=== PATIENT | male | born 1980 | race Caucasian/White ===

== ENCOUNTER 2020-04-18 03:51 | Observation (INO) | payer OTHER ==
[2020-04-18 04:50] LABS: Basophils % (A) 1 %; Eosinophils # (A) 0.3 k/uL (0-0.7); Eosinophils % (A) 6 %; HCT 43.5 % (39.0-53.0); HGB 14.8 gm/dL (13.0-17.5); Lymphocytes # (A) 1.7 k/uL (1.0-4.8); Lymphocytes % (A) 34 %; MCH 31.9 pg (25.0-35.0); MCV 93.9 fL (80.0-100.0); Mean Platelet Volume 7.3; Monocytes # (A) 0.3 k/uL (0-1.0); Monocytes % (A) 7 %; Neutrophils # (A) 2.4 k/uL (1.3-7.7); Neutrophils % (A) 49 %; Platelet Count 276 k/uL (150-450); RBC 4.63 m/uL (4.30-5.90); RDW 12.5 % (11.5-15.5); WBC 4.9 k/uL (3.8-10.6)
--- NOTE | 2020-04-18 04:51 | XR ---
EXAMINATION TYPE: XR chest 2V DATE OF EXAM: 04/18/2020 COMPARISON: 08/23/2018 HISTORY: Chest pain TECHNIQUE: FINDINGS: Heart and mediastinum are normal. Lungs are clear. Diaphragm is normal. Bony thorax appears normal. There are chest leads. IMPRESSION: Normal chest. No change.
[2020-04-18 04:54] LABS: Appearance,Urine Clear (Clear); Bilirubin,Urine Negative (Negative); Blood,Urine Negative (Negative); Color,Urine Colorless; Glucose,Urine (UA) Negative (Negative); Ketones,Urine Negative (Negative); Leukocyte Esterase,Urine Negative (Negative); Nitrite,Urine Negative (Negative); PH, Urine 6.5 (5.0-8.0); Protein,Urine Negative (Negative); Specific Gravity,Urine 1.002 (1.001-1.035); Urobilinogen,Urine <2.0 mg/dL (<2.0)
[2020-04-18 05:02] LABS: ALT 36 U/L (4-49); AST 34 U/L (17-59); African American GFR (CKD) >90 (>60 ml/min/1.73 sqM); Albumin 4.6 g/dL (3.5-5.0); Alkaline Phosphatase 65 U/L (38-126); Amylase 89 U/L (30-110); Anion Gap 9 mmol/L; Blood Urea Nitrogen 14 mg/dL (9-20); Calcium 9.5 mg/dL (8.4-10.2); Carbon Dioxide 24 mmol/L (22-30); Chloride 104 mmol/L (98-107); Glucose 99 mg/dL (74-99); Magnesium 2.1 mg/dL (1.6-2.3); Non-African American GFR(CKD) >90 (>60 ml/min/1.73 sqM); Potassium 4.2 mmol/L (3.5-5.1); Sodium 137 mmol/L (137-145); Total Bilirubin 0.4 mg/dL (0.2-1.3); Total Protein 7.2 g/dL (6.3-8.2)
[2020-04-18 05:06] LABS: D-Dimer <0.17 mg/L FEU (<0.60); Partial Thromboplastin Time 23.2 sec (22.0-30.0)
[2020-04-18] MEDS ORDERED: NITROGLYCERIN SL TABS 0.4 MG TAB SUBLINGUAL PRN (06:07)
--- NOTE | 2020-04-18 06:10 | ED ---
Chest Pain HPI - General Chief Complaint: Chest Pain Stated Complaint: chest pain, L arm numbness Time Seen by Provider: 04/18/20 04:15 Source: patient Mode of arrival: ambulatory Limitations: no limitations - History of Present Illness Initial Comments: This patient is a 40-year-old man who presents to be evaluated for chest pain. The patient states this is been coming intermittently for nearly 2 weeks now. This episode started approximately 2 AM while he was at rest. Patient has not noted any exertional component. He indicates left chest with some numbness to his left upper extremity. He has had nausea going on intermittently for the past 2 weeks as well. MD Complaint: chest pain -: week(s) Onset: during rest Pain Location: left chest Pain Radiation: LUE Severity: moderate Quality: aching Consistency: intermittent, now resolved Improves With: nothing Worsens With: nothing Anginal Symptoms: nausea Treatments Prior to Arrival: none - Related Data Home Medications Medication Instructions Recorded Confirmed No Known Home Medications 08/23/18 04/18/20 Allergies Allergy/AdvReac Type Severity Reaction Status Date / Time shellfish derived [Shellfish] Allergy Unknown Verified 04/18/20 06:54 Review of Systems ROS Statement: Those systems with pertinent positive or pertinent negative responses have been documented in the HPI. ROS Other: All systems not noted in ROS Statement are negative. Constitutional: Denies: fever, chills Respiratory: Denies: cough, dyspnea Cardiovascular: Reports: as per HPI, chest pain. Denies: palpitations, edema, syncope Gastrointestinal: Reports: nausea. Denies: abdominal pain, vomiting, diarrhea Genitourinary: Denies: dysuria, hematuria Musculoskeletal: Denies: back pain Skin: Denies: rash Neurological: Denies: headache, weakness, numbness EKG Findings - EKG Results: EKG: interpreted by CARL SPENCER, sinus rhythm (Rate 82 bpm), normal axis, normal QRS, normal ST/T Past Medical History Past Medical History: No Reported History History of Any Multi-Drug Resistant Organisms: None Reported Past Surgical History: Orthopedic Surgery Past Psychological History: No Psychological Hx Reported Past Alcohol Use History: Daily Past Drug Use History: None Reported General Exam Limitations: no limitations General appearance: alert, in no apparent distress Head exam: Present: atraumatic, normocephalic Eye exam: Present: normal appearance. Absent: scleral icterus, conjunctival injection ENT exam: Present: normal oropharynx Neck exam: Present: normal inspection Respiratory exam: Present: normal lung sounds bilaterally. Absent: respiratory distress, wheezes, rales, rhonchi, stridor Cardiovascular Exam: Present: regular rate, normal rhythm, normal heart sounds. Absent: systolic murmur, diastolic murmur, rubs, gallop GI/Abdominal exam: Present: soft. Absent: distended, tenderness, guarding, rebound, rigid, mass Extremities exam: Present: normal inspection, normal capillary refill. Absent: pedal edema, calf tenderness Back exam: Present: normal inspection. Absent: CVA tenderness (R), CVA tenderness (L) Neurological exam: Present: alert Skin exam: Present: warm, dry, intact, normal color. Absent: rash Course Vital Signs 04/18/20 04/18/20 04/18/20 03:56 05:00 06:00 Temperature 97.9 F Pulse Rate 83 68 89 Respiratory 18 18 16 Rate Blood Pressure 140/89 122/86 117/81 O2 Sat by Pulse 99 97 97 Oximetry 04/18/20 06:46 Temperature 98.2 F Pulse Rate 79 Respiratory 16 Rate Blood Pressure 122/93 O2 Sat by Pulse 97 Oximetry Disposition Clinical Impression: Chest pain Disposition: ADMITTED IP TO THIS HOSP Condition: Stable
--- NOTE | 2020-04-18 08:51 | HP ---
HISTORY AND PHYSICAL A 40-year-old white male. He has insertional chest pain when he was moving around, especially at 2 in the morning, elicited left-sided chest pain with some numbness to his left upper extremity going on for the past 2 weeks associated with some nausea. No hemoptysis. No tachypnea. No tachycardia. ALLERGIES: Negative. 14 POINT REVIEW OF SYSTEMS: Negative except for as mentioned in HPI. EKG normal sinus rhythm, no ischemia. PAST MEDICAL HISTORY: Nothing. ORTHOPEDIC SURGERY: Nothing. Daily alcohol. No drugs. No smoking. Temperature 97.9, pulse 68 to 89, blood pressure is 117-140/81 to 89, O2 saturation 97% to 99% on room air. CARDIOVASCULAR: S1 and S2. LUNGS: Clear. GI: Soft. HEMATOLOGIC: Negative Homans. PSYCH: Fair mood and affect. NEUROLOGIC: Alert and orient x3. OPHTHALMOLOGIC: Pupils equal, round, reactive. This is atypical chest pain. Cardiology consulted to rule out myocardial infarction. Please see further orders. MMODL / IJN: [id number] /
[2020-04-18 11:19] VITALS: BP 122/79; PULSE 78; RESP 14; TEMP 98
--- NOTE | 2020-04-18 11:25 | P.CRDCN ---
History of Present Illness History of present illness: HISTORY OF PRESENTING ILLNESS This is a pleasant 40-year-old male with no significant past medical history. He follows in the office with Dr. Reynolds. He states he saw him at the end of last year secondary to his episode of feeling lightheaded and dizzy. At that time he underwent an echocardiogram and outpatient monitoring that were both unremarkable. He did have evidence of some PVCs on the monitor.. We have been asked to see in consultation for chest pain. For the previous 2 weeks he has been experiencing a burning type sensation in the left precordial region. He notices a worsening fevers except in the morning or when he lays down at night. It is associated with mild nausea. He also has been experiencing intermittent episodes of feeling lightheaded and feels like his heart is racing with him and he checks his pulse it is normal. He has no shortness of breath, vomiting or diaphoresis. Last night while he was laying down and the discomfort in his chest returned and seemed to be intensified. It felt like a burning sensation in the left precordial region that radiated down the left arm. He felt like his arm was heavy and on fire. DIAGNOSTICS EKG reveals sinus mechanism with no acute ST or T wave abnormalities noted. Telemetry tracings unremarkable. Chest xray negative for an acute cardiopulmonary process. Laboratory reviewed, CBC unremarkable, d-dimer less than 0.17, sodium 137, potassium 4.2, creatinine 0.71, magnesium 2.1, cardiac enzymes negative 2. He takes no daily cardiac medications. REVIEW OF SYSTEMS At the time of my exam: CONSTITUTIONAL: Denies fever or chills. CARDIOVASCULAR: Denies chest pain, shortness of breath, orthopnea, PND or palpitations. RESPIRATORY: Denies cough. GASTROINTESTINAL: Denies abdominal pain, diarrhea, constipation, nausea or vomiting. MUSCULOSKELETAL: Denies myalgias. NEUROLOGIC: Denies numbness, tingling or weakness. ENDOCRINE: Denies fatigue, weight change, polydipsia or polyurina. GENITOURINARY: Denies burning, hematuria or urgency with micturation. HEMATOLOGIC: Denies history of anemia or bleeding. PHYSICAL EXAMINATION Blood pressure 122/93 heart rate 79 afebrile and maintaining oxygen saturation on room air. CONSTITUTIONAL: No apparent distress. HEENT: Head is normocephalic. Pupils are equal, round. Sclerae anicteric. Mucous membranes of the mouth are moist. No JVD. No carotid bruit. CHEST EXAMINATION: Lungs are clear to auscultation. No chest wall tenderness is noted on palpation or with deep breathing. HEART EXAMINATION: Regular rate and rhythm. S1, S2 heard. No murmurs, gallops or rub. ABDOMEN: Soft, nontender. Positive bowel sounds. EXTREMITIES: 2+ peripheral pulses, no lower extremity edema and no calf tenderness. NEUROLOGIC EXAMINATION: Patient is awake, alert and oriented x3. ASSESSMENT Chest pain, atypical. An acute coronary event has been ruled out. Dizziness. Blood pressures have been well-controlled and telemetry tracings unremarkable. PLAN Proceed with stress echocardiogram to assess her stress induced cardiac ischemia. If normal, we will apply an outpatient event monitor and he can be discharged home. Follow-up in the office with Dr. Reynolds upon discharge. Thank you kindly for this consultation. Nurse Practitioner note has been reviewed, I agree with a documented findings and plan of care. Patient was seen and examined. Past Medical History Past Medical History: No Reported History History of Any Multi-Drug Resistant Organisms: None Reported Past Surgical History: Orthopedic Surgery Additional Past Surgical History / Comment(s): knee surgery. Past Anesthesia/Blood Transfusion Reactions: No Reported Reaction Past Psychological History: No Psychological Hx Reported Smoking Status: Never smoker Past Alcohol Use History: Daily Additional Past Alcohol Use History / Comment(s): pt drinks wine daily. Past Drug Use History: None Reported Medications and Allergies Home Medications Medication Instructions Recorded Confirmed Type No Known Home Medications 08/23/18 04/18/20 History Allergies Allergy/AdvReac Type Severity Reaction Status Date / Time shellfish derived [Shellfish] Allergy Unknown Verified 04/18/20 06:54 Physical Exam Vitals: Vital Signs Temp Pulse Resp BP Pulse Ox 04/18/20 06:46 98.2 F 79 16 122/93 97 04/18/20 06:00 89 16 117/81 97 04/18/20 05:00 68 18 122/86 97 04/18/20 03:56 97.9 F 83 18 140/89 99 Intake and Output 04/17/20 04/18/20 04/18/20 22:59 06:59 14:59 Other: Weight 76.702 kg 76.702 kg Results 04/18/20 04:29 04/18/20 04:29 Cardiac Enzymes 04/18/20 04/18/20 Range/Units 04:29 04:29 AST 34 (17-59) U/L Troponin I <0.012 (0.000-0.034) ng/mL Coagulation 04/18/20 Range/Units 04:29 PT 10.0 (9.0-12.0) sec APTT 23.2 (22.0-30.0) sec CBC 04/18/20 Range/Units 04:29 WBC 4.9 (3.8-10.6) k/uL RBC 4.63 (4.30-5.90) m/uL Hgb 14.8 (13.0-17.5) gm/dL Hct 43.5 (39.0-53.0) % Plt Count 276 (150-450) k/uL Comprehensive Metabolic Panel 04/18/20 Range/Units 04:29 Sodium 137 (137-145) mmol/L Potassium 4.2 (3.5-5.1) mmol/L Chloride 104 (98-107) mmol/L Carbon Dioxide 24 (22-30) mmol/L BUN 14 (9-20) mg/dL Creatinine 0.71 (0.66-1.25) mg/dL Glucose 99 (74-99) mg/dL Calcium 9.5 (8.4-10.2) mg/dL AST 34 (17-59) U/L ALT 36 (4-49) U/L Alkaline Phosphatase 65 (38-126) U/L Total Protein 7.2 (6.3-8.2) g/dL Albumin 4.6 (3.5-5.0) g/dL Current Medications Generic Name Dose Route Start Last Admin Trade Name Freq PRN Reason Stop Dose Admin Aspirin 325 mg 04/19/20 09:00 Aspirin PO DAILY ANUJ Nitroglycerin 0.4 mg 04/18/20 06:07 04/18/20 06:16 Nitrostat SUBLINGUAL 0.4 mg Q5M PRN Administration Chest Pain Intake and Output 04/17/20 04/18/20 04/18/20 22:59 06:59 14:59 Other: Weight 76.702 kg 76.702 kg Patient Weight 04/19/20 06:59 Weight 76.702 kg 04/18/20 04:29 04/18/20 04:29
--- NOTE | 2020-04-18 12:23 | P.STRESS ---
- Stress Test Note Stress Test Results/Findings: Exam Performed: stress echo exercise Exam Date: 04/18/20 Reason for Exam: CP Height: 5 ft 6 in Weight: 76.7 kg Protocol: STRESS ECHO EXERCISE Stage: 4 Duration of Exercise: 12:00 Resting Heart Rate: 71 Resting Blood Pressure: 109/65 Maximum Achieved Heart Rate: 181 Maximum Achieved Blood Pressure: 184/105 85% PMHR: 152 100% PMHR: 179 METS: 12.1 Technologist Comment: Stress Test Results/Findings: This is a 40-year-old gentleman admitted to the hospital with complaints of chest pain and palpitations. Stress data base an EKG showed sinus rhythm with normal DC and QRS duration. Blood pressure at rest is 109/65 with pulse rate of 71. Patient walked on the Brendon protocol for about 4 minutes achieving a maximum rate of 179 with blood pressure of 1 8465. EKGs taken during the exercise did not reveal any changes of ischemia. Echo data: Baseline echo images showed normal wall motion and thickening. Exercise images showed augmentation of wall motion and thickening in all segments. Final impression: #1. Negative stress test #2. Negative stress echo
[2020-04-19] MEDS ORDERED: ASPIRIN 325 MG TAB PO SCH (09:00)
--- NOTE | 2020-04-19 16:04 | ECHOS ---
Stress Test Results/Findings: Exam Performed: stress echo exercise Exam Date: 04/18/20 Reason for Exam: CP Height: 5 ft 6 in Weight: 76.7 kg Protocol: STRESS ECHO EXERCISE Stage: 4 Duration of Exercise: 12:00 Resting Heart Rate: 71 Resting Blood Pressure: 109/65 Maximum Achieved Heart Rate: 181 Maximum Achieved Blood Pressure: 184/105 85% PMHR: 152 100% PMHR: 179 METS: 12.1 Technologist Comment: Stress Test Results/Findings: This is a 40-year-old gentleman admitted to the hospital with complaints of chest pain and palpitations. Stress data base an EKG showed sinus rhythm with normal NE and QRS duration. Blood pressure at rest is 109/65 with pulse rate of 71. Patient walked on the Brendon protocol for about 4 minutes achieving a maximum rate of 179 with blood pressure of 1 8465. EKGs taken during the exercise did not reveal any changes of ischemia. Echo data: Baseline echo images showed normal wall motion and thickening. Exercise images showed augmentation of wall motion and thickening in all segments. Final impression: #1. Negative stress test #2. Negative stress echo MTDD
--- NOTE | 2020-04-19 18:07 | P.DS ---
Providers Date of admission: 04/18/20 06:07 Expected date of discharge: 04/18/20 Attending physician: Cuauhtemoc Harrison Consults: 04/18/20 06:07 Consult Physician Routine Consulting Provider: Herman Blanca Consult Reason/Comments: chest pain Do you want consulting provider notified?: Yes Primary care physician: Physician Nonstaff Hospital Course: Final Diagnoses: Chest pain, atypical. An acute coronary event ruled out. Status post negative stress test, negative stress echo. Dizziness, resolved Hospital course: This a 40-year-old gentleman admitted with chest pain, dizzines s and multiple other medical issues. Evaluated by cardiology. Underwent stress test reporting negative stress test with negative stress echo. EKG and telemetry failed to reveal any arrhythmias, sinus with no acute ST or T-wave abnormalities reported , blood pressure controlled. chest x-ray, nonacute Significant clinical improvement. Cleared by cardiology for discharge. Patient is being discharged home in a stable condition with guarded prognosis. Outpatient Event monitor at discharge. The impression and plan of care has been dictated as directed. : I performed a history and examination of this patient, discussed the same with the dictator. I agree with the dictator's note ,documented as a scribe. Any additional findings or plans will be noted. Patient Condition at Discharge: Stable Plan - Discharge Summary Discharge Rx Participant: No New Discharge Prescriptions: No Action No Known Home Medications Discharge Medication List No Known Home Medications 08/23/18 [History] Follow up Appointment(s)/Referral(s): Alphonso Reynolds MD [STAFF PHYSICIAN] - 05/16/20 2:30 pm (at [facility] ([facility])-- [address] [place] [address]. ) Cuauhtemoc Harrison MD [STAFF PHYSICIAN] - 1 Week Patient Instructions/Handouts: Chest Pain (ED) Activity/Diet/Wound Care/Special Instructions: Outpatient Event Monitor as per cardiology Discharge Disposition: HOME SELF-CARE
== END 2020-04-18 13:45 | disposition home or self-care (01) ==
LOC: EC 03:51 → 3NCARDOBS 06:07
PROVIDERS: ADMIT Family Medicine; ATTEND Family Medicine
DX: R07.89 Other chest pain (principal); R42 Dizziness and giddiness; R20.0 Anesthesia of skin; R11.0 Nausea; R07.2 Precordial pain; I49.3 Ventricular premature depolarization; Z03.818 Encounter for observation for suspected exposure to other biological agents ruled out; Z91.013 Allergy to seafood; Z98.890 Other specified postprocedural states
CPT/HCPCS: 99285; 36415; 93005; 93270; 93351; 85379; 80053; 82150; 83690; 83735; 84484; 85025; 85610; 85730; 81003; 71046; G0378; U0003

== ENCOUNTER 2024-04-12 12:21 | Observation (INO) | payer OTHER ==
[2024-04-12 12:55] LABS: Basophils % (A) 1 %; Eosinophils # (A) 0.1 k/uL (0-0.7); Eosinophils % (A) 2 %; HCT 47.3 % (39.0-53.0); HGB 15.1 gm/dL (13.0-17.5); Lymphocytes # (A) 1.4 k/uL (1.0-4.8); Lymphocytes % (A) 30 %; MCH 30.8 pg (25.0-35.0); MCHC 31.9 g/dL (31.0-37.0); MCV 96.4 fL (80.0-100.0); Monocytes # (A) 0.3 k/uL (0-1.0); Monocytes % (A) 7 %; Neutrophils # (A) 2.7 k/uL (1.3-7.7); Neutrophils % (A) 59 %; Platelet Count 281 k/uL (150-450); RBC 4.91 m/uL (4.30-5.90); RDW 12.3 % (11.5-15.5); WBC 4.6 k/uL (3.8-10.6)
[2024-04-12 13:05] LABS: Partial Thromboplastin Time 24.2 sec (22.0-30.0); Prothrombin Time 10.8 sec (10.0-12.5)
[2024-04-12 13:13] LABS: ALT 27 U/L (4-49); AST 31 U/L (17-59); African American GFR (CKD) >90 (>60 ml/min/1.73 sqM); Albumin 4.9 g/dL (3.5-5.0); Alkaline Phosphatase 60 U/L (38-126); Anion Gap 6 mmol/L; Blood Urea Nitrogen 13 mg/dL (9-20); Calcium 9.8 mg/dL (8.4-10.2); Carbon Dioxide 28 mmol/L (22-30); Chloride 105 mmol/L (98-107); Glucose 94 mg/dL (74-99); Magnesium 2.2 mg/dL (1.6-2.3); Non-African American GFR(CKD) >90 (>60 ml/min/1.73 sqM); Potassium 4.1 mmol/L (3.5-5.1); Sodium 139 mmol/L (137-145); Total Bilirubin 0.6 mg/dL (0.2-1.3); Total Protein 7.7 g/dL (6.3-8.2)
--- NOTE | 2024-04-12 13:51 | XR ---
EXAMINATION TYPE: XR chest 2V DATE OF EXAM: 04/12/2024 COMPARISON: 04/18/2020 HISTORY: 44-year-old male with chest pain TECHNIQUE: PA and lateral views FINDINGS: The cardiomediastinal silhouette, aorta, and pulmonary vasculature are within normal limits. Lungs an d pleural spaces are clear. IMPRESSION: No acute cardiopulmonary process.
--- NOTE | 2024-04-12 14:13 | ED ---
General Adult HPI - General Chief complaint: Chest Pain Stated complaint: chest pain Time Seen by Provider: 04/12/24 13:30 Source: patient, RN notes reviewed, old records reviewed Mode of arrival: ambulatory Limitations: no limitations - History of Present Illness Initial comments: This is a 44-year-old male who presents to the emergency department complaining of chest pain on the left side. Patient states this started after he ran a 5K on April 02. Patient states the pain is sharp in nature and pretty constant now is migrated to the center of his chest and it feels like a pressure sensation. Patient states the pain radiates down his left arm now over the last couple of days. Patient states he is also become short of breath when he walks up a flight of stairs which is very unusual since he is a runner. Patient states he also has been diaphoretic at times with the increased pain. Patient denies any fever chills or cough or patient denies any diabetes hypertension high cholesterol smoking history. Patient denies any body in his family has had coronary artery disease. - Related Data Home Medications Medication Instructions Recorded Confirmed No Known Home Medications 08/23/18 04/18/20 Allergies Allergy/AdvReac Type Severity Reaction Status Date / Time shellfish derived [Shellfish] Allergy Unknown Verified 04/12/24 12:32 Review of Systems ROS Statement: Those systems with pertinent positive or pertinent negative responses have been documented in the HPI. ROS Other: All systems not noted in ROS Statement are negative. Past Medical History Past Medical History: No Reported History History of Any Multi-Drug Resistant Organisms: None Reported Past Surgical History: Orthopedic Surgery Additional Past Surgical History / Comment(s): knee surgery. Past Anesthesia/Blood Transfusion Reactions: No Reported Reaction Past Psychological History: No Psychological Hx Reported Smoking Status: Never smoker Past Alcohol Use History: Daily Past Drug Use History: None Reported General Exam - General Exam Comments Initial Comments: GENERAL: Patient is well-developed and well-nourished. Patient is nontoxic and well- hydrated and is in no acute distress. ENT: Neck is soft and supple. No significant lymphadenopathy is noted. Oropharynx is clear. Moist mucous membranes. Neck has full range of motion without eliciting any pain. EYES: The sclera were anicteric and conjunctiva were pink and moist. Extraocular movements were intact and pupils were equal round and reactive to light. Eyelids were unremarkable. PULMONARY: Unlabored respirations. Good breath sounds bilaterally. No audible rales rhonchi or wheezing was noted. CARDIOVASCULAR: There is a regular rate and rhythm without any murmurs gallops or rubs. Nonreproducible chest pain ABDOMEN: Soft and nontender with normal bowel sounds. SKIN: Skin is clear with no lesions or rashes and otherwise unremarkable. NEUROLOGIC: Patient is alert and oriented x3. Cranial nerves II through XII are grossly intact. Motor and sensory are also intact. Normal speech, volume and content. Symmetrical smile. MUSCULOSKELETAL: Normal extremities with adequate strength and full range of motion. No lower extremity swelling or edema. No calf tenderness. LYMPHATICS: No significant lymphadenopathy is noted PSYCHIATRIC: Normal psychiatric evaluation. Limitations: no limitations Course Vital Signs 04/12/24 12:31 Temperature 98.4 F Pulse Rate 64 Respiratory 20 Rate Blood Pressure 124/78 O2 Sat by Pulse 99 Oximetry Medical Decision Making - Medical Decision Making EKG is interpreted by myself read EKG shows a sinus rhythm at 62 bpm RI interval 145 QRS 93 QT interval 375 QTc is [address] segment elevation or depression Was pt. sent in by a medical professional or institution (, PA, RECEPTION INTERVIEWER, urgent care, hospital, or halfway...) When possible be specific @ -No Did you speak to anyone other than the patient for history (EMS, parent, family, police, friend...)? What history was obtained from this source @ -No Did you review nursing and triage notes (agree or disagree)? Why? @ -I reviewed and agree with nursing and triage notes Were old charts reviewed (outside hosp., previous admission, EMS record, old EKG, old radiological studies, urgent care reports/EKG's, halfway records)? Report findings @ -No old charts were reviewed Differential Diagnosis? @ -Differential Chest Pain: Stable Angina, Unstable Angina, STEMI, NSTEMI Aortic Dissection, Pneumothorax, Musculoskeletal, Esophageal Spasm GERD, Cholecystitis, Pancreatitis, Zoster, this is not meant to be an all-inclusive list. EKG interpreted by me (3pts min.). @ -As above X-rays interpreted by me (1pt min.). @ -Chest x-ray shows no acute abnormality CT interpreted by me (1pt min.). @ -None done U/S interpreted by me (1pt. min.). @ -None done What testing was considered but not performed or refused? (CT, X-rays, U/S, labs)? Why? @ -None What meds were considered but not given or refused? Why? @ -None Did you discuss the management of the patient with other professionals (professionals i.e. , PA, RECEPTION INTERVIEWER, lab, RT, psych nurse, social work administrator, stud beef cattle farmer, teacher, chief risk officer, supportive employment case manager)? Give summary @ -I spoke with Dr. Harrison he agreed to admit the patient Was smoking cessation discussed for >3mins.? @ -No Was critical care preformed (if so, how long)? @ -No Were there social determinants of health that impacted care today? How? (Homelessness, low income, unemployed, alcoholism, drug addiction, transportation, low edu. Level, literacy, decrease access to med. care, alf, rehab)? @ -No Was there de-escalation of care discussed even if they declined (Discuss DNR or withdrawal of care, Hospice)? DNR status @ -No What co-morbidities impacted this encounter? (DM, HTN, Smoking, COPD, CAD, Cancer, CVA, ARF, Chemo, Hep., AIDS, mental health diagnosis, sleep apnea, morbid obesity)? @ -None Was patient admitted / discharged? Hospital course, mention meds given and route, prescriptions, significant lab abnormalities, going to OR and other pertinent info. @ -Patient was having chest pain and it has been getting progressively worse and now radiates down his left arm and is also experiencing shortness of breath. Patient states it usually last for less than an hour and currently he is not feeling any of the pressure in his chest. Undiagnosed new problem with uncertain prognosis? @ -No Drug Therapy requiring intensive monitoring for toxicity (Heparin, Nitro, Insulin, Cardizem)? @ -No Were any procedures done? @ -No Diagnosis/symptom? @ -Chest pain Acute, or Chronic, or Acute on Chronic? @ -acute Uncomplicated (without systemic symptoms) or Complicated (systemic symptoms)? @ -Complicated Side effects of treatment? @ -No Exacerbation, Progression, or Severe Exacerbation? @ -No Poses a threat to life or bodily function? How? (Chest pain, USA, ND, pneumonia, PE, COPD, DKA, ARF, appy, cholecystitis, CVA, Diverticulitis, Homicidal, Suicidal, threat to staff... and all critical care pts) @ -Yes this can lead to an ND and endorgan dysfunction - Lab Data Result diagrams: 04/12/24 12:34 04/12/24 12:34 Lab Results 04/12/24 04/12/24 04/12/24 Range/Units 12:34 12:34 12:34 WBC 4.6 (3.8-10.6) k/uL RBC 4.91 (4.30-5.90) m/uL Hgb 15.1 (13.0-17.5) gm/dL Hct 47.3 (39.0-53.0) % MCV 96.4 (80.0-100.0) fL MCH 30.8 (25.0-35.0) pg MCHC 31.9 (31.0-37.0) g/dL RDW 12.3 (11.5-15.5) % Plt Count 281 (150-450) k/uL MPV 8.0 Neutrophils % 59 % Lymphocytes % 30 % Monocytes % 7 % Eosinophils % 2 % Basophils % 1 % Neutrophils # 2.7 (1.3-7.7) k/uL Lymphocytes # 1.4 (1.0-4.8) k/uL Monocytes # 0.3 (0-1.0) k/uL Eosinophils # 0.1 (0-0.7) k/uL Basophils # 0.0 (0-0.2) k/uL PT 10.8 (10.0-12.5) sec INR 1.0 (<1.2) APTT 24.2 (22.0-30.0) sec D-Dimer (<0.60) mg/L FEU Sodium 139 (137-145) mmol/L Potassium 4.1 (3.5-5.1) mmol/L Chloride 105 (98-107) mmol/L Carbon Dioxide 28 (22-30) mmol/L Anion Gap 6 mmol/L BUN 13 (9-20) mg/dL Creatinine 0.67 (0.66-1.25) mg/dL Est GFR (CKD-EPI)AfAm >90 (>60 ml/min/1.73 sqM) Est GFR (CKD-EPI)NonAf >90 (>60 ml/min/1.73 sqM) Glucose 94 (74-99) mg/dL Calcium 9.8 (8.4-10.2) mg/dL Magnesium 2.2 (1.6-2.3) mg/dL Total Bilirubin 0.6 (0.2-1.3) mg/dL AST 31 (17-59) U/L ALT 27 (4-49) U/L Alkaline Phosphatase 60 (38-126) U/L Troponin I (0.000-0.034) ng/mL Total Protein 7.7 (6.3-8.2) g/dL Albumin 4.9 (3.5-5.0) g/dL 04/12/24 04/12/24 Range/Units 12:34 12:34 WBC (3.8-10.6) k/uL RBC (4.30-5.90) m/uL Hgb (13.0-17.5) gm/dL Hct (39.0-53.0) % MCV (80.0-100.0) fL MCH (25.0-35.0) pg MCHC (31.0-37.0) g/dL RDW (11.5-15.5) % Plt Count (150-450) k/uL MPV Neutrophils % % Lymphocytes % % Monocytes % % Eosinophils % % Basophils % % Neutrophils # (1.3-7.7) k/uL Lymphocytes # (1.0-4.8) k/uL Monocytes # (0-1.0) k/uL Eosinophils # (0-0.7) k/uL Basophils # (0-0.2) k/uL PT (10.0-12.5) sec INR (<1.2) APTT (22.0-30.0) sec D-Dimer <0.17 (<0.60) mg/L FEU Sodium (137-145) mmol/L Potassium (3.5-5.1) mmol/L Chloride (98-107) mmol/L Carbon Dioxide (22-30) mmol/L Anion Gap mmol/L BUN (9-20) mg/dL Creatinine (0.66-1.25) mg/dL Est GFR (CKD-EPI)AfAm (>60 ml/min/1.73 sqM) Est GFR (CKD-EPI)NonAf (>60 ml/min/1.73 sqM) Glucose (74-99) mg/dL Calcium (8.4-10.2) mg/dL Magnesium (1.6-2.3) mg/dL Total Bilirubin (0.2-1.3) mg/dL AST (17-59) U/L ALT (4-49) U/L Alkaline Phosphatase (38-126) U/L Troponin I <0.012 (0.000-0.034) ng/mL Total Protein (6.3-8.2) g/dL Albumin (3.5-5.0) g/dL Disposition Clinical Impression: Chest pain Disposition: ADMITTED IP TO THIS HOSP Referrals: None,Stated [Primary Care Provider] - 1-2 days Time of Disposition: 14:46
[2024-04-12] MEDS ORDERED: NITROGLYCERIN SL TABS 0.4 MG TAB SUBLINGUAL PRN (14:47)
[2024-04-12] MEDS: ASPIRIN 81 MG PO STA (15:18)
[2024-04-12] MEDS: NITROGLYCERIN OINT 1 INCH/GM PACKET TOPICAL SCH (18:44)
[2024-04-12 21:46] VITALS: RESP 16
[2024-04-12] MEDS ORDERED: LORazepam 2 MG/ML INJ IV PRN ×3 (22:15)
[2024-04-12] MEDS: ACETAMINOPHEN TAB 325 MG TAB PO PRN (22:27)
--- NOTE | 2024-04-13 01:40 | HP ---
HISTORY AND PHYSICAL HISTORY OF PRESENT ILLNESS: This 44-year-old came to hospital with some chest pain on his left side after he ran a 5K on April 02. States it is sharp in nature, radiating into the center of his chest, possible pressure sensation. Pain does radiate down his left arm over the last couple of days. He is also short of breath when walking up stairs, which is unusual, more diaphoretic at home. No fevers or chills. Denies any diabetes, hypertension, high cholesterol, or smoking history. Denies any family history of heart disease. ALLERGIES: Negative . REVIEW OF SYSTEMS: A 14-point review of systems otherwise negative. PAST SURGICAL HISTORY: Orthopedic surgery, knee surgery. SOCIAL HISTORY: No smoking or vaping. PHYSICAL EXAMINATION: GENERAL: Nontoxic appearing, well developed, well nourished. HEENT: Normocephalic, atraumatic. Pupils equal, round, and reactive. LUNGS: Fairly clear. HEART: Regular rate and rhythm. Nonreproducible chest pain. ABDOMEN: Soft. SKIN: Clear. NEUROLOGIC: Alert and oriented x3. Fair mood and affect. VITAL SIGNS: Temperature 98.4, pulse 64, respiratory rate 18 to 20, blood pressure 124/78, O2 99. EKG shows sinus rhythm with no ischemia. We will do troponins. Cardiology consult. PROGNOSIS: Guarded. D-dimer is negative. Troponin is negative. Wait for Cardiology to clear him, possibly have to run an echo on him to look for a valvular disease or something like that in a runner. MMODL / IJN: [id number] /
[2024-04-13 03:15] VITALS: TEMP 97.6
[2024-04-13 08:57] LABS: Chol/HDL Ratio 3.31 Ratio; LDL Cholesterol,Calculated 132.7 mg/dL (0.0-131.0)
[2024-04-13] MEDS: ASPIRIN 325 MG TAB PO SCH (09:17)
[2024-04-13 11:38] VITALS: BP 126/87; PULSE 60
--- NOTE | 2024-04-13 12:18 | P.CRDCN ---
History of Present Illness Consult date: 04/13/24 Consult reason: chest pain History of present illness: This is a 44-year-old male patient with no significant past medical history. Patient did have office visit with Dr. KRISTEN Reynolds in 2019 for palpitations and nondescript chest tightness and pressure. He underwent testing at that time that was negative. We have been asked to evaluate the patient for chest pain. Patient states that he was walking up 4 flights of stairs yesterday and devel oped dizziness and shortness of breath. He states he never feels winded. He runs on a regular basis and recently did a 5K run. He states following that he also developed chest pain and left arm numbness. He often has the chest pain and left arm numbness. He denies any recent injury. He has no pain now. He has no premature family history of coronary artery disease. There is no history of CVA. His mom has history of atrial fibrillation. Patient is a non-smoker, no alcohol abuse. Blood pressure 130/72, heart rate 60, pulse ox 100% on room air. Patient ambulated in the hallway and could not reproduce chest discomfort. EKG: Sinus rhythm x [address]-T wave changes. Chest x-ray: No acute process. Laboratory studies: CBC, INR, D-dimer, CMP within normal limits. Troponin nega tive x 3. Triglycerides 69, cholesterol 210, LDL 132, HDL 63. Home cardiac medications: None Echocardiogram in 2019 revealed EF of 55%. Holter monitor in 2019 was predominantly sinus with average heart rate 73 bpm. No significant arrhythmia and no symptoms. Review Of Systems: At the time of my exam: CONSTITUTIONAL: Denies fever or chills. HEENT: Denies blurred vision, vision changes, or eye pain. Denies hemoptysis CARDIOVASCULAR: Denies chest pain. Denies orthopnea. Denies PND. Denies palpit ations RESPIRATORY: Denies shortness of breath. GASTROINTESTINAL: Denies abdominal pain. Denies nausea or vomiting. HEMATOLOGIC: Denies bleeding disorders. GENITOURINARY: Denies any blood in urine. SKIN: Denies puritis. Denies rash. Physical examination: Gen: This is a 44-year-old male in no acute distress VS: reviewed HEENT: Head is atraumatic, normocephalic. Pupils equal, round. Sclerae is a nicteric. NECK: Supple. No JVD. LUNGS: Clear to auscultation. No wheezes or rhonchi. No intercostal retractions. HEART: Regular rate and rhythm. No murmur. ABDOMEN: Soft No tenderness. EXTREMITIES: No pedal edema. No calf tenderness. NEUROLOGICAL: Patient is awake, alert and oriented x3. Assessment: Chest pain, most likely musculoskeletal, acute coronary syndrome ruled out Patient has no risk factors for coronary artery disease except for slightly elevated cholesterol. Discussed use of statin which patient is agreeable to start along with an aspirin and will follow-up in the office for outpatient testing. Plan: Obtain 2-D echocardiogram and Doppler study to assess cardiac structure and function If echocardiogram is unremarkable, patient is cleared for discharge and may follow-up with Dr. Jarquin in 1 week. New prescriptions have been sent to his pharmacy. Thank you kindly for this consultation. Nurse practitioner note has been reviewed, I agree with documented findings and plan of care. Patient was seen and examined. Past Medical History Past Medical History: No Reported History History of Any Multi-Drug Resistant Organisms: None Reported Past Surgical History: Orthopedic Surgery Additional Past Surgical History / Comment(s): knee surgery. Past Anesthesia/Blood Transfusion Reactions: No Reported Reaction Past Psychological History: No Psychological Hx Reported Smoking Status: Never smoker Past Alcohol Use History: Daily Additional Past Alcohol Use History / Comment(s): pt drinks wine daily. Past Drug Use History: None Reported Medications and Allergies Home Medications Medication Instructions Recorded Confirmed Type Aspirin [Adult Low Dose Aspirin EC] 81 mg PO DAILY #30 tab 04/13/24 Rx Atorvastatin [Lipitor] 40 mg PO HS #90 tablet 04/13/24 Rx Allergies Allergy/AdvReac Type Severity Reaction Status Date / Time shellfish derived [Shellfish] Allergy Unknown Verified 04/12/24 14:53 Physical Exam Vitals: Vital Signs Temp Pulse Pulse Resp BP BP Pulse Ox 04/13/24 09:17 59 L 16 130/72 100 04/13/24 03:14 97.6 F 62 16 115/72 98 04/12/24 23:15 97.5 F L 47 L 16 107/61 97 04/12/24 21:44 97.2 F L 49 L 16 109/65 100 04/12/24 21:18 98.2 F 63 18 122/73 96 04/12/24 19:40 55 L 18 115/68 96 04/12/24 15:32 97.5 F L 53 L 18 131/83 99 04/12/24 12:31 98.4 F 64 20 124/78 99 Intake and Output 04/12/24 04/13/24 04/13/24 22:59 06:59 14:59 Intake Total 10 Output Total 2 Balance -2 10 Intake: IV 10 Invasive Line 1 10 Output: Urine 2 Other: Voiding Method Toilet Toilet Weight 73.936 kg 72.8 kg Results 04/12/24 12:34 04/12/24 12:34 Cardiac Enzymes 04/12/24 04/12/24 04/12/24 Range/Units 12:34 12:34 15:42 AST 31 (17-59) U/L Troponin I <0.012 <0.012 (0.000-0.034) ng/mL 04/12/24 Range/Units 18:18 AST (17-59) U/L Troponin I <0.012 (0.000-0.034) ng/mL Coagulation 04/12/24 Range/Units 12:34 PT 10.8 (10.0-12.5) sec APTT 24.2 (22.0-30.0) sec Lipids 04/12/24 Range/Units 12:34 Triglycerides 69.50 (0.00-149.00) mg/dL Cholesterol 210.00 H (0.00-200.00) mg/dL HDL Cholesterol 63.40 H (40.00-60.00) mg/dL Cholesterol/HDL Ratio 3.31 Ratio CBC 04/12/24 Range/Units 12:34 WBC 4.6 (3.8-10.6) k/uL RBC 4.91 (4.30-5.90) m/uL Hgb 15.1 (13.0-17.5) gm/dL Hct 47.3 (39.0-53.0) % Plt Count 281 (150-450) k/uL Comprehensive Metabolic Panel 04/12/24 Range/Units 12:34 Sodium 139 (137-145) mmol/L Potassium 4.1 (3.5-5.1) mmol/L Chloride 105 (98-107) mmol/L Carbon Dioxide 28 (22-30) mmol/L BUN 13 (9-20) mg/dL Creatinine 0.67 (0.66-1.25) mg/dL Glucose 94 (74-99) mg/dL Calcium 9.8 (8.4-10.2) mg/dL AST 31 (17-59) U/L ALT 27 (4-49) U/L Alkaline Phosphatase 60 (38-126) U/L Total Protein 7.7 (6.3-8.2) g/dL Albumin 4.9 (3.5-5.0) g/dL Current Medications Generic Name Dose Route Start Last Admin Trade Name Freq PRN Reason Stop Dose Admin Acetaminophen 650 mg 04/12/24 22:10 04/12/24 22:27 Acetaminophen Tab 325 Mg Tab PO 650 mg Q4HR PRN Administration Fever and/ or Mild Pain Aspirin 325 mg 04/13/24 09:00 04/13/24 09:17 Aspirin 325 Mg Tab PO 325 mg DAILY ANUJ Administration Lorazepam 1 mg 04/12/24 22:15 Lorazepam 2 Mg/Ml Inj IV Q1H PRN CIWA 10 to 15 Lorazepam 1 mg 04/12/24 22:15 Lorazepam 2 Mg/Ml Inj IV Q2H PRN CIWA 8 or 9 Nitroglycerin 0.4 mg 04/12/24 14:47 Nitroglycerin Sl Tabs 0.4 Mg Tab SUBLINGUAL Q5M PRN Chest Pain Nitroglycerin 1 inch 04/12/24 18:00 04/13/24 06:05 Nitroglycerin Oint 1 Inch/Gm Packet TOPICAL Not Given Q6HR ANUJ Intake and Output 04/12/24 04/13/24 04/13/24 22:59 06:59 14:59 Intake Total 10 Output Total 2 Balance -2 10 Intake: IV 10 Invasive Line 1 10 Output: Urine 2 Other: Voiding Method Toilet Toilet Weight 73.936 kg 72.8 kg 04/12/24 12:34 04/12/24 12:34
--- NOTE | 2024-04-13 13:11 | CA ---
Transthoracic Echo Report Name: Luis Miguel Romero Age: 44 Gender: M : 1980 Exam Date: 04/13/2024 10:19 Exam Location: [facility] Ht (in): 66 Wt (lb): 163 Ordering Physician: Cuauhtemoc Harrison MD Attending/Referring Phys: Customer Retention Representative Janey Monet RDCS Procedure CPT: Indications: CP Cardiac Hx: Technical Quality: Fair Contrast 1: Total Dose (mL): Contrast 2: Total Dose (mL): MEASUREMENTS (Male / Female) Normal Values 2D ECHO LV Diastolic Diameter PLAX 5.2 cm 4.2 - 5.9 / 3.9 - 5.3 cm LV Systolic Diameter PLAX 3.5 cm IVS Diastolic Thickness 1.1 cm 0.6 - 1.0 / 0.6 - 0.9 cm LVPW Diastolic Thickness 1.0 cm 0.6 - 1.0 / 0.6 - 0.9 cm LV Relative Wall Thickness 0.4 LVOT Diameter 2.3 cm LV Diastolic Volume MOD BP 127.1 cm??? 67 - 155 / 56 - 104 cm??? LV Systolic Volume MOD BP 55.3 cm??? 22 - 58 / 19 - 49 cm??? LV Ejection Fraction MOD BP 56.5 % >= 55 % LV Cardiac Index MOD BP 2152.5 cm???/min???m??? LV Diastolic Volume MOD 4C 128.7 cm??? LV Systolic Volume MOD 4C 54.1 cm??? LV Ejection Fraction MOD 4C 58.0 % LV Cardiac Index MOD 4C 2234.3 cm???/min???m??? LV Diastolic Length 4C 9.3 cm LV Systolic Length 4C 7.8 cm LV Diastolic Volume MOD 2C 124.1 cm??? LV Systolic Volume MOD 2C 51.5 cm??? LV Ejection Fraction MOD 2C 58.5 % LV Cardiac Index MOD 2C 2174.8 cm???/min???m??? LV Diastolic Length 2C 9.1 cm LV Systolic Length 2C 7.1 cm LA Volume 44.5 cm??? 18 - 58 / 22 - 52 cm??? LA Volume Index 23.8 cm???/m??? 16 - 28 cm???/m??? Ascending Aorta Diameter 3.4 cm DOPPLER AV Peak Velocity 139.0 cm/s AV Peak Gradient 7.7 mmHg AV Mean Velocity 95.1 cm/s AV Mean Gradient 4.1 mmHg AV Velocity Time Integral 27.4 cm LVOT Peak Velocity 108.0 cm/s LVOT Peak Gradient 4.7 mmHg LVOT Velocity Time Integral 21.9 cm LVOT Stroke Volume 91.8 cm??? LVOT Stroke Volume Index 50.1 ml/m??? LVOT Cardiac Index 2749.3 cm???/min???m??? AV Area Cont Eq vti 3.3 cm??? AV Area Cont Eq pk 3.3 cm??? MV Area PHT 3.7 cm??? Mitral E Point Velocity 62.1 cm/s Mitral A Point Velocity 36.2 cm/s Mitral E to A Ratio 1.7 MV Deceleration Time 206.9 ms TR Peak Velocity 212.1 cm/s TR Peak Gradient 18.0 mmHg Right Atrial Pressure 5.0 mmHg Pulmonary Artery Systolic Pressu 23.0 mmHg Right Ventricular Systolic Press 23.0 mmHg PV Peak Velocity 104.2 cm/s PV Peak Gradient 4.3 mmHg FINDINGS Left Ventricle Left ventricular ejection fraction is estimated at 55-60 %. Left ventricular cavity size normal. Left ventricular wall thickness normal. No obvious regional wall motion abnormalities. Right Ventricle Normal right ventricular size and function. Right ventricular systolic pressure within normal limits. Right Atrium Normal right atrial size. Left Atrium Normal left atrial size. Mitral Valve Structurally normal mitral valve. No evidence for mitral valve prolapse. No mitral stenosis. Trace mitral regurgitation. Aortic Valve Trileaflet aortic valve. No aortic valve stenosis or regurgitation. Tricuspid Valve Structurally normal tricuspid valve. No tricuspid stenosis. Trace tricuspid regurgitation. Pulmonic Valve Structurally normal pulmonic valve. No pulmonic stenosis. No pulmonic regurgitation. Pericardium No pericardial effusion. Aorta Normal size aortic root and proximal ascending aorta. CONCLUSIONS Left ventricular ejection fraction 55-60% RVSP 23 Trace mitral regurgitation Trace tricuspid regurgitation No pericardial effusion Previewed by: Dr. Ed Amos DO (Electronically Signed) Final Date: 13 April 2024 13:10
[2024-04-14] MEDS ORDERED: ASPIRIN 81 MG PO SCH (09:00)
== END 2024-04-13 14:55 | disposition home or self-care (01) ==
LOC: EC 12:21 → 6NMEDSUR 14:47 → 3SCARD 19:57
PROVIDERS: ADMIT Family Medicine; ATTEND Family Medicine
DX: R07.89 Other chest pain (principal); R06.02 Shortness of breath; R20.0 Anesthesia of skin; R61 Generalized hyperhidrosis; M79.602 Pain in left arm; R42 Dizziness and giddiness; E78.00 Pure hypercholesterolemia, unspecified; Z91.013 Allergy to seafood
CPT/HCPCS: 99285; 36415; 93005; 93306; 85379; 80061; 80053; 83735; 84484; 85025; 85610; 85730; 83036; 71046; G0378 ×3